=== PATIENT | female | born 1930 | race Caucasian/White ===

== ENCOUNTER 2017-06-10 12:41 | Day surgery (SDC) | payer MEDICARE, OTHER ==
[~2017-06-10] VITALS: Ht 157.5 cm; Wt 67.8 kg
--- NOTE | 2017-06-10 12:09 | PCM.HPANE ---
Patient Data Surgeon Admitting Provider: Attending Provider:Quang Haines MD Primary Care Physician:Georgia Ruiz MD Other Provider:Bianca Brockingham Anesthesia Reason for Visit Left Lung Cancer Ht/WT & BMI Height (Feet): 5 Weight (Kilograms): 73.03 Body Mass Index 31.00 Allergies Coded Allergies: No Known Allergies (Verified Allergy, Unknown, 06/06/17) Past Anesthesia History Anesthesia History: Denies:: Anesthesia Reactions, Malignant Hyperthermia Diabetes History Hx Diabetes?: No MRSA MRSA: No Medications Reported Medications Apixaban (Eliquis)5 Mg Tablet5 Mg PO DAILY 05/09/17 Chlorthalidone 25 Mg Ewckdy00 Mg PO DAILY 05/09/17 Haloperidol 0.5 Mg Tablet0.5 Mg PO PRN 30 Days 05/01/17 Ranitidine 150 Mg [id number] Mg PO PRN Ref 0 04/18/17 Multivitamin (Multivitamins)1 Each Capsule1 Each PO DAILY 04/18/17 Folic Acid 1 Mg Tablet1 Mg PO DAILY 03/26/17 Cholecalciferol (Vitamin D3) (Vitamin D3)1,000 Unit Tab.chew1,000 Unit PO DAILY 03/26/17 Morphine Sulfate 15 Mg Vargkd05 Mg PO BID 03/19/17 Docusate Sodium (Colace)100 Mg Qnjghto992 Mg PO DAILY PRN For Constipation Ref 0 03/04/17 Levothyroxine 112 Mcg Asarqv743 Mcg PO DAILY For Thyroid Replacement 02/19/17 Polyethylene Glycol 3350 17 Gm Powd.pack17 Gm PO BID PRN 02/14/14 Ketoconazole (Nizoral)120 Ml Gtgwcoh139 Ml TOP DAILY PRN PRN 02/14/14 Hydrocodone-Acetaminophen 5-325 mg 1 Each Tablet1-2 Each PO Q4 PRN For Pain Ref 0 MAX 8/DAY 02/14/14 Fluocinolone 0.01% Cream 60 Applic/15 Gm Cream1 Applic TOP BID PRN PRN #60 GM Ref 0 02/14/14 Discontinued Reported Medications Prednisone (PredniSONE)10 Mg Qypgse92 Mg PO DAILY Ref 0 10MG DAILY X 1 WEEK; THEN 5MG DAILY X 1 WEEK; THEN 5MG EVERY OTHER DAY FOR 1 WEEK THEN STOP. 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) Denies:: Chest Pain Heart Murmur Hypertension Pacemaker Rheumatic Fever Valvular Heart Disease Hx of Respiratory Problem?: Yes Respiratory History: Positive for:: Chest Surgery (S/P LUNG BX X2 CXR 2016 SHOWS NO PNEUMO) Pneumonia (hx of 2013) Denies:: Asthma COPD Dyspnea Emphysema Hemoptysis Oxygen Administration Tuberculosis Use of C-PAP Machine Other Resp Pertinent History: lung cancer current admission problem Hx Neurologic Problems?: Yes Neurological History: Denies:: Alzheimer's Disease CVA Dementia Dizziness Headaches Seizures Hx of GI Problems?: No Hx of Problems?: Yes Genitourinary History: Denies:: HX of Hemodialysis Kidney Stones Urinary Tract Infection Female Hx: Positive for:: Problems with Breasts? (hx mili mastectomy) Denies:: Currently Endometriosis Pelvic Inflammatory Skin History: Positive for:: History Skin Disorders? (rash ? r/t chemo? 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) Hospitalization Thyroid Disease Denies:: Endocrine Disease History Blood Transfusions: Denies:: Blood Transfusions Hx Diabetes: No Hx Alcohol Use: NoHx Substance Use: No Smoking Status: Never Smoker Have You Smoked inLast 12 mo: No Stop/Bang S-Snoring: Do You Snore Loudly: No T-Tired: feel tired, fatigued: Yes O-Obsered: Observed not breath: No P-Blood Pressure: treated: Yes B- Body Mass Index > 35 kg/m2: No A- Age over 50: Yes N- Neck Large Circumference: No G- Gender Male: No TORREY Total Score: 3 Risk Assessment Category Category 1A: Patient has history of documented sleep apnea, and HAS NOT received any narcotic, sedative or anesthesia administration during this stay. Category 1B: Patient has history of documented sleep apnea, and HAS received any narcotic , sedative or anesthesia administration during this stay Category 2: Patient has SUSPECTED Obstructive Sleep Apnea, and HAS received any narcotic , sedative or anesthesia administration during this stay. Category 3: Patient has SUSPECTED Obstructive Sleep Apnea and HAS NOT received narcotic, sedative or anesthesia administration during this stay. Category 4: Outpatient in Procedural Areas with known sleep apnea or who screen positive for High Risk via the STOP/BANG questionnaire. Exam Exam General Appearance: Alert, Oriented X3, Cooperative HEENT/AIRWAY: MP 2, Neck Movement (from), Mouth Opening (wnl) Lungs: Clear to Auscultation Heart: Exam Unremarkable Plan Impression Patient chart reviewed, patient interviewed and anesthestic plan with risks, benefits, and alternatives discussed, and informed consent obtained. ASA Physical Status: ASA3 Severe Disease Anesthetic Plan: GA Bene/Risks/Altern/Consents: Yes HP Complete Prior to Induction: Yes Anand Romero MD Jun 10, 2017 12:09
[~2017-06-10 12:41] MED LIST: APIX5TAB PO; CHOL10008 PO; CeFAZolin 2 Gm/50 mL D5W IV Premix IV SCH; DOCU-41 PO; FLUO15CR33 TOP; FOLI1TAB18 PO; HAL05 PO; HYDR-4003 PO; HYG25 PO; KETO120S TOP; LEVO112T4 PO; Lactated Ringer's 1,000 ML IV ONE; Lactated Ringer's 1,000 ML IV SCH; MORP15TA PO; MULT1CAP33 PO; POLY17PO2 PO; RANI150C4 PO
[2017-06-10] MEDS ORDERED: Propofol 10,000 mCg/mL 20 mL Inj ONE (12:42)
[2017-06-10] MEDS ORDERED: Ondansetron 2 mg/mL 2 mL Inj ONE (12:42)
[2017-06-10] MEDS ORDERED: fentaNYL-PF 50 mCg/mL 2 mL Inj ONE (12:42)
[2017-06-10] MEDS ORDERED: CeFAZolin 2 Gm/50 mL D5W Duplex Bag IV ONE (13:03)
[2017-06-10 13:12] VITALS: BP 135/70; PULSE 96; RESP 18; O2SAT 96
[2017-06-10] MEDS ORDERED: Bupivacaine 0.5% 50 mL Inj INFILTRATE ONE (13:42)
[2017-06-10] MEDS ORDERED: EPHEDrine Sulfate 50 mg/mL Inj IVPUSH PRN (15:00)
[2017-06-10] MEDS ORDERED: Lactated Ringer's 500 ML IV PRN (15:00)
[2017-06-10] MEDS ORDERED: Dexamethasone 4 mg/mL Inj IVPUSH PRN (15:00)
[2017-06-10] MEDS ORDERED: Phenylephrine 10,000 mCg/mL Inj IVPUSH PRN (15:00)
[2017-06-10] MEDS ORDERED: fentaNYL-PF 50 mCg/mL 2 mL Inj IVPUSH PRN (15:00)
[2017-06-10] MEDS ORDERED: Lactated Ringer's 1,000 ML IV SCH (15:00)
[2017-06-10] MEDS ORDERED: HYDROmorphone 1 mg/mL Inj IVPUSH PRN (15:00)
[2017-06-10] MEDS ORDERED: Ondansetron 2 mg/mL 2 mL Inj IVPUSH PRN ×2 (15:00→15:20)
[2017-06-10] MEDS ORDERED: HepLOK Flush 100 unit/mL 5 mL Inj IVFLUSH ONE (15:04)
[2017-06-10 15:15] VITALS: BP 114/70; PULSE 70; RESP 15; O2SAT 93
[2017-06-10] MEDS ORDERED: HYDROcodone-APAP 5-325 mg Tablet PO PRN (15:20)
--- NOTE | 2017-06-10 15:22 | PCM.ANEP1 ---
Post Anesthesia PACU Phase 1 Assessment Vital Signs Vital Signs Date Time Temp Pulse Resp B/P Pulse Ox O2 Delivery O2 Flow Rate FiO2 06/10/17 13:12 96 18 135/70 96 Room Air Anesthetic Administered: MAC Level of Alertness: Awake, talking LONGORIA's with Equal Strength: Yes Pain: No Nausea or Vomiting: No CV Function & Hydration Stable: Yes Airway Device: Oxygen Delivery: Room Air Lungs: Normal Air Movement PACU Phase 2 Assessment Complications: No Follow up Care: No Patient Instructions Provided: N/A Anand Romero MD Jun 10, 2017 15:22
--- NOTE | 2017-06-10 15:58 | DRSVH ---
PROCEDURE: X-RAY CHEST ONE VIEW, PORTABLE ([id number]) INDICATIONS: new port, r/o pneumotx TECHNIQUE: One view of the chest was acquired. COMPARISON: [facility], CT, CT BX LUNG MEDIASTINUM, 03/25/2017, 8:13. [facility], CT, CT CHEST ABD PELVIS W CON, 06/05/2017, 15:13. [facility], CR, XR CHEST 1VW (POR TABLE), 03/25/2017, 11:22. FINDINGS: Surgical changes and devices: There is a new right subclavian Port-A-Cath. Lungs and pleura: Lung volumes are low. There is interstitial prominence. Left lung mass is redemonst rated. There is likely atelectasis at the left lung base. No pneumothorax. Mediastinum: Mediastinal contours appear normal. Heart size is normal. Bones and chest wall: No suspicious bony lesions. Overlying soft tissues appear unremarkable. IMPRESSION: 1. No pneumothorax after Port-A-Cath placement. 2. Stable left lung mass and probable left basilar atelectasis. Dictated by: Kecia Burns M.D. on 06/10/2017 at 15:55 Approved by: Kecia Burns M.D. on 06/10/2017 at 15:57
--- NOTE | 2017-06-10 16:29 | OP ---
[address] [address] OPERATIVE REPORT PATIENT: VELASQUEZ SULLIVAN : 1930 MR#: [id number] ADMIT: 06/10/2017 JOB ID: [id number] DATE OF SURGERY: 06/10/2017 PREOPERATIVE DIAGNOSIS(ES): Left lung cancer. POSTOPERATIVE DIAGNOSIS(ES): Left lung cancer. PROCEDURE: Power Port placement. SURGEON: Dr. Quang Haines INDICATIONS: An 86-year-old female with need for a Power Port for anticipated chemotherapy later this week. The patient was initially scheduled with Dr. Cash but due to scheduling issues, the patient is proceeding with nj as her operative surgeon. Preoperative consent has been obtained and the patient and her daughter wish to proceed. FINDINGS: Right-sided Port-A-Cath placed without complications. Left subclavian vein was unable to be cannulated as described below. PROCEDURE: The patient was brought to the operating room. SCOAP protocol was followed. She received perioperative antibiotics. Surgical time-out was performed. Bilateral chest and neck were prepped in a sterile fashion. After instilling local anesthetic, I attempted to cannulate the left subclavian vein using anatomic landmarks. I was unable to cannulate the vein. The patient had a visible external jugular vein and I cut down on this, isolated it with two 0 silk and then made a venotomy. I was able to flush the catheter into the external jugular vein and pass it down centrally. Fluoroscopy documented that the vein just would turn down towards the subclavian vein but then would go caudad and apparently posterior to the cardiac shadow likely and some small accessory vein. At this point, I felt that the left side approach was not going to be successful to get a central catheter placed. I, therefore, went with a right-sided approach. We removed the catheter, washed it off. I tied off the external jugular vein and closed that wound with absorbable suture and now went to the right side. Easily cannulated the right subclavian vein, passed the wire. Fluoroscopy documented the wire was in the SVC passing down into the IVC. We now passed a sheath dilator assembly over the wire, removed the dilator and wire and then passed the flushed catheter through the peel-away sheath, removing the sheath. Fluoroscopy documented the tip of the catheter was in the right ventricle and we pulled this back where it was at the junction of the SVC and right atrium. I now tunneled the proximal end of the catheter into a pocket on the right side that I had made after cannulating the vein. This was down onto the chest wall musculature. We trimmed the catheter appropriate length, attached it to the port and flushed it. I did loop the catheter around the port and then secured the port in three positions with 2-0 Prolene. This was secured to the chest wall. I now irrigated out the wounds. We repeated the fluoroscopy to document that the catheter tip was in the right position. It was. We now closed the port incision in layers. The incision ended up being cephalad to the actual body of the port, and after closing all wounds with absorbable suture, I did cannulate the port, aspirated and flushed. We then cleaned off the wounds, placed dry dressings and I did place a purple X directly over the cannulation site. All three incisions were dressed, the patient was undraped and transferred to the recovery room. At the time of dictation, she is awakened from anesthesia. We are awaiting a postoperative chest x-ray.
[2017-06-10 17:00] VITALS: BP 114/76; PULSE 68; RESP 14; O2SAT 98
== END 2017-06-10 23:59 | disposition home or self-care (01) ==
LOC: SAS 12:41
PROVIDERS: ATTEND Surgery
DX: C78.02 Secondary malignant neoplasm of left lung (principal); I71.4 Abdominal aortic aneurysm, without rupture; Z79.899 Other long term (current) drug therapy
CPT/HCPCS: 36561; 71010; 77001; C1788; J0690; J1642; J2250; J2405; J2704; J3010; J7120